=== PATIENT | female | born 1970 | race Caucasian/White ===

== ENCOUNTER 2016-12-12 08:21 | Emergency (ER) | payer MEDICAID, OTHER ==
[~2016-12-12] VITALS: Ht 157.5 cm; Wt 66.0 kg
[~2016-12-12 08:21] MED LIST: ALBU1AER INH; MEDR4PAK3 PO; ZITH250T PO
[2016-12-12 08:24] VITALS: BP 123/63; PULSE 102; RESP 24; TEMP 98.3; O2SAT 95
[2016-12-12] MEDS ORDERED: RESP: ALBUTEROL 2.5 MG/IPRATROPIUM 0.5 MG NEB (SCH) INH ONE (09:15)
[2016-12-12] MEDS ORDERED: ALBU.5I NEB (09:15)
[2016-12-12] MEDS ORDERED: FISH1000 PO (09:15)
[2016-12-12] MEDS ORDERED: predniSONE 20 MG TAB PO ONE (09:15)
[2016-12-12] MEDS ORDERED: LEVO25TA4 PO (09:15)
[2016-12-12] MEDS ORDERED: VENTAER INH ×2 (09:15→09:18)
[2016-12-12] MEDS ORDERED: MOME17I EACH NARE (09:18)
[2016-12-12] MEDS ORDERED: PRED-503 PO (09:18)
[2016-12-12] MEDS ORDERED: BENZ100 PO (09:18)
--- NOTE | 2016-12-12 09:18 | PD ---
HPI Chief Complaint: Cold / Flu Symptoms Time Seen by Provider: 09:11 Travel History International Travel<30 days: No Contact w/Intl Traveler<30days: No Traveled to known affect area: No History of Present Illness HPI 45-year-old female presents to the emergency department complaint of nasal congestion, cough, chills since yesterday. She has history of asthma and has been using her nebulizer treatments at home with some relief; last used at approximately 4:30 this morning. Denies chest Tightness, chest pain, or shortness of breath. Reports productive cough. Reports throat irritation and ear pressure. Does not know she's had fever; has not taken her temperature. Denies wheezing. Allergies to naproxen and penicillin. History of asthma, hypothyroidism and high cholesterol. No other modifying factors or associated signs and symptoms. PFSH Past Medical History Hx Anticoagulant Therapy: No Asthma: Yes Cardiovascular Problems: No Chemotherapy: No Cerebrovascular Accident: No Diabetes: No Diminished Hearing: No Respiratory: No ?: Unknown LMP: had vasectomy years ago : 4 Para: 3 Miscarriage: 1 : 0 Past Surgical History Hysterectomy: No Social History Alcohol Use: Yes (OCC) Tobacco Use: No (E CIGARETTE) Substance Use: No Allergies-Medications (Allergen,Severity, Reaction): Coded Allergies: Naproxen (Verified Allergy, Severe, 12/12/16) Penicillin (Verified Allergy, Severe, RASH, 12/12/16) Reported Meds & Prescriptions Reported Meds & Active Scripts Active Nasonex Nasal [place] (Mometasone Furoate) 50 Mcg/Act Naspr 2 [place] EACH NARE DAILY PRN Tessalon Perles (Benzonatate) 100 Mg Cap 100 Mg PO TID PRN Deltasone (Prednisone) 20 Mg Tab 40 Mg PO DAILY 4 Days start 12/13/2016 Ventolin Hfa 18 GM Inh (Albuterol Sulfate) 90 Mcg/Act Aer 2 Puff INH Q4H PRN Reported Albuterol Neb (Albuterol Sulfate) 2.5 Mg/0.5 Ml Neb 2.5 Mg NEB Q4HR NEB PRN Note: The Albuterol Sulfate Inhalation Solution is concentrated and must be diluted. Read complete instructions carefully before using. Fish Oil ([place]-3 Fatty Acids) 1,000 Mg Cap 1 Tab PO BID Levothyroxine (Levothyroxine Sodium) 25 Mcg Tab Unknown Dose PO DAILY Review of Systems Except as stated in HPI: all other systems reviewed are Neg Physical Exam Narrative GENERAL: Well-nourished, well-developed female patient, in no acute distress SKIN: Warm and dry. No rash. HEAD: Atraumatic. Normocephalic. EYES: Pupils equal and round at 3 mm with brisk reaction. No scleral icterus. No injection or drainage. PERRLA. ENT: Mucosa pink and moist. No erythema or exudates. No uvular edema. No uvular , palatal, or tonsillar deviation. Airway patent. EARS: Bilateral pinnae and external canals appear within normal limits. Bilateral tympanic membranes without erythema, dullness or perforation. NECK: Trachea midline. No lymphadenopathy. CARDIOVASCULAR: Regular rate and rhythm. No murmur appreciated. RESPIRATORY: No accessory muscle use. Mild wheezing throughout to auscultation. Breath sounds equal bilaterally. No retractions or tachypnea. GASTROINTESTINAL: Abdomen soft, non-tender, nondistended. Hepatic and splenic margins not palpable. Bowel sounds are active 4 quadrants. MUSCULOSKELETAL: No obvious deformities. No clubbing. No cyanosis. No edema. NEUROLOGICAL: Awake and alert. Oriented 3. No obvious cranial nerve deficits. Motor grossly within normal limits. Normal speech. Moves all extremities. 5/5 strength to all extremities. PSYCHIATRIC: Appropriate mood and affect; insight and judgment normal. Data Data Last Documented VS Vital Signs Date Time Temp Pulse Resp B/P Pulse Ox O2 Delivery O2 Flow Rate FiO2 12/12/16 08:24 98.3 102 24 123/63 95 Room Air Orders Prednisone (Deltasone) (12/12/16 09:15) Albuterol-Ipratropium Neb (Duoneb Neb) (12/12/16 09:15) [facility] Medical Decision Making Medical Screen Exam Complete: Yes Emergency Medical Condition: Yes Medical Record Reviewed: Yes Differential Diagnosis Viral illness, asthma exacerbation, acute bronchitis Narrative Course 45-year-old female, with history of asthma, physical examination consistent with viral illness and asthma exacerbation. Patient is afebrile. She reports chills at home but cannot reported MAXIMUM TEMPERATURE. She is in no acute distress and without retractions or tachypnea. Oxygen saturation is 95% on room air. DuoNeb 1 and Deltasone administered in the ER. 0949: Patient reports improvement in symptoms on reevaluation. Lung sounds are clear and equal bilaterally. Ventolin inhaler, Tessalon Perles, Deltasone, Nasonex nasal spray prescribed for home. Patient is medically cleared and stable for discharge. Discussed reasons to return to the emergency department. Instructed patient to follow up with primary care provider. Patient agrees with treatment plan. The patients vital signs are stable and the patient is stable for outpatient follow-up and treatment. Patient discharged home, stable and in no acute distress. Diagnosis Primary Impression: Viral illness Additional Impression: Asthma exacerbation Referrals: Primary Care Physician Patient Instructions: Asthma (ED), Cold Symptoms (ED), General Instructions, Safe Use of Cough and Cold Medicines (ED) Departure Forms: Tests/Procedures, Work Release Enter return to work date: Dec 14, 2016 Additional Instructions: Use albuterol inhaler 2-4 puffs as needed for shortness of breath and wheezing Take oral steroids as prescribed and complete full course avoid asthma triggers such as second hand smoke, dust, known allergens Ibuprofen or Tylenol as directed and as needed to reduce fever/pain Get plenty of sleep/rest Drink plenty of fluids to prevent dehydration [place] diet to encourage nutrition such as crackers, fruit, applesauce, toast, soup etc. Use an air humidifier/turn off ceiling fans Follow-up with your primary care provider Return immediately to the emergency department with worsening of symptoms Med/Other Pt SpecificInfo: Prescription(s) given Scripts Mometasone Nasal [place] (Nasonex Nasal [place])50 Mcg/Act Naspr2 [place] EACH NARE DAILY PRN (NASAL CONGESTION) #1 BOTTLE Ref 0 Prov:Kia Cortez 12/12/16 Benzonatate (Tessalon Perles)100 Mg [id number] Mg PO TID PRN (COUGH) #21 CAP Ref 0 Prov:Kia Cortez 12/12/16 Prednisone (Deltasone)20 Mg Tab40 Mg PO DAILY 4 Days Ref 0 start 12/13/2016 Prov:Kia Cortez 12/12/16 Albuterol 18 GM Inh (Ventolin Hfa 18 GM Inh)90 Mcg/Act Aer2 Puff INH Q4H PRN ( SHORTNESS OF BREATH) #0 INHALER Ref 0 Prov:Kia Cortez 12/12/16 Disposition: 01 DISCHARGE HOME Condition: Stable Kia Cortez Dec 12, 2016 09:18
== END 2016-12-12 09:56 | disposition home or self-care (01) ==
LOC: NEPB 08:21
DX: B34.9 Viral infection, unspecified (principal); J45.901 Unspecified asthma with (acute) exacerbation
CPT/HCPCS: 94664; 99283; J7512